=== PATIENT | female | born 1985 | race American Indian/Alaskan Native ===

== ENCOUNTER 2018-11-29 12:07 | Inpatient (IN) | payer MEDICAID, OTHER ==
--- NOTE | 2018-11-29 13:35 | History and Physical Report ---
History of Present Illness Date of admission: 11/29/18 12:07 Chief complaint: transferred from clinic due to 15 week missed History of present illness: 33yo at 16wks 1 day presents from clinic due to no heart tones confirmed on US. She denies vaginal bleeding or any trauma. She states she was seen at [facility] and received no feedback concerning status. She also stated she had a visit in September at [facility] that confirmed heart tones. Those records are not available at this time. She is a new patient of [facility]. Per MD verbal report the genetic screening tests was elevated for Trisomy 21. Past History Past Medical History: other (recent miscarriage 07/2018) Past Surgical History: no surgical history Family/Genetic History: cancer (Father - GI cancer) Social history: other (has a boyfriend, moved to [place] 2014, works for [employer], denies any tobacco, alcohol or drugs. ) - Obstetrical History : 7 Number of Living Children: 5 Medications and Allergies Allergies Allergy/AdvReac Type Severity Reaction Status Date / Time Latex, Natural Rubber Allergy Rash Verified 11/29/18 14:18 - Vital Signs Vital signs: Vital Signs Pulse BP 125 H 126/83 11/29/18 12:26 11/29/18 12:26 Temp Pulse Resp BP Pulse Ox 125 H 126/83 11/29/18 12:26 11/29/18 12:26 Results Result Diagrams: 11/29/18 13:49 All other labs normal. Assessment and Plan - Patient Problems (1) Second trimester Current Visit: Yes Status: Acute Plan to address problem: 1. Labs: (CBC, T&S, TSH, TORCH labs - not already drawn, HbA1C. 2. US to confirm no heart tones and presentation. 3. Positive quad screen: risk of DS discussed with patient. 4. Misoprostol 25mcg vaginally 5. IV pain control. 6. Discussed recommendation for induction and vaginal delivery with patient. Also discussed possible need for D&C if placenta does not deliver after vaginal delivery. Patient acknowledges understanding and questions were answered. 7. Proceed to induction of labor.
[2018-11-29] MEDS ORDERED: ZOFRAN IV PRN (13:38)
[2018-11-29] MEDS ORDERED: XYLOCAINE 2% INFILTRATI ONE (13:38)
[2018-11-29] MEDS ORDERED: BRETHINE SUB-Q PRN (13:38)
[2018-11-29] MEDS ORDERED: PITOCin/NS 20 UNIT/1000ML DRIP 20 UNITS/1,000 ML BAG IV SCH (14:00)
[2018-11-29 14:31] LABS: Hematocrit 35.1 % (30.3-42.9); Hemoglobin 11.4 gm/dl (10.1-14.3); Mean Corpuscular HGB Conc 32 % (30-34); Mean Corpuscular Volume 84 fl (79-97); Platelet Count 276 K/mm3 (140-440); Red Blood Count 4.18 M/mm3 (3.65-5.03); Red Cell Distribution Width 13.5 % (13.2-15.2)
--- NOTE | 2018-11-29 15:22 | Ultrasound Report ---
OB ULTRASOUND History: demise, confirm no heart tones, anatomic abnormalities. Technique: Transabdominal ultrasound with Doppler interrogation. Comparison: None at this facility. FINDINGS: Gestation: Single Position: Breech Amniotic Fluid: Within normal limits Placenta: Posterior Placental Grade: 0 Heart Rate: 0 BPM x It is too early for a anatomical survey BPD: 2.8 cm = 15 w 0 d HC: 10.5 cm = 15 w 0 d AC: 9.4 cm = 15 w 4 d FL: 1.4 cm = 14 w 1 d HC/AC Ratio: 1.1 Cephalic Index: 91.2 Estimated Weight: 109 grams Clinical age = 16 w 3 d EDC: 05/13/19 US Gest. Age = 15 w 0 d EDC: 05/03/19 IMPRESSION: demise.
[2018-11-29] MEDS: CYTOTEC VAGINAL SCH ×3 (15:34→23:40)
[2018-11-29] MEDS: SUBLIMAZE IV PRN (20:22)
[2018-11-29] MEDS ORDERED: PHENERGAN PO PRN (23:20)
[2018-11-30] MEDS: SUBLIMAZE IV PRN (00:22)
[2018-11-30] MEDS ORDERED: MORPHINE ONE (00:44)
[2018-11-30] MEDS ORDERED: MORPHINE IV ONE (00:53)
[2018-11-30] MEDS ORDERED: CYTOTEC PO ONE (00:54)
[2018-11-30] MEDS ORDERED: CYTOTEC ONE (00:55)
[2018-11-30] MEDS ORDERED: LACTATED RINGERS 2,000 ML ONE (01:16)
[2018-11-30] MEDS ORDERED: DOXYCYCLINE HYCLATE 200 MG in NACL 0.9% 250ML 250 ML IV ONE (01:30)
[2018-11-30] MEDS ORDERED: TUCKS PAD TP PRN (01:48)
[2018-11-30] MEDS ORDERED: PHENERGAN PO PRN (01:48)
[2018-11-30] MEDS ORDERED: TYLENOL PO PRN (01:48)
[2018-11-30] MEDS ORDERED: DULCOLAX PR PRN (01:48)
[2018-11-30] MEDS ORDERED: MILK OF MAGNESIA PO PRN (01:48)
[2018-11-30] MEDS ORDERED: LANSINOH TP PRN (01:48)
[2018-11-30] MEDS ORDERED: BENADRYL PO PRN (01:48)
--- NOTE | 2018-11-30 01:48 | Procedure Note ---
OB Delivery Note - Delivery Estimated blood loss: other (400ml) - Vaginal Intrapartum events: other(please specify) (spontaneous at 15 weeks) Delivery augmentation: rupture of membranes Delivery monitor: none Route of delivery: Delivery placenta: spontaneous Episiotomy: none Delivery laceration: none Anesthesia: intravenous Delivery comments: Called to room of patient found to have bulging membranes with 100ml vaginal bleeding in bed. Ruptured membranes and fetus spontaneously delivered in vertex position. Attempted collection of amniotic fluid prior to rupture for analysis but patient refused. Cord clamped x 2, cut and placed in sterile basin. Attention then turned to placenta with thin cord. Decision made to administer uterotonic to aid in placenta delivery. Patient given Misoprostol 200mcg buccally. Called to room for vaginal bleeding 300ml blood and clots in bed, decision made to proceed to suction D&C. Patient consented. Called to room of patient placenta had delivered spontaneously with maternal pushing with charge nurse. Bimanual exam done, uterus firm and bleeding stopped. Decision made to do sonogram to evaluate for retaine products and continue mother on Methergine 200mg PO Q3 hrs x 3 doses. Times Delivery 0049 Placenta 0125
[2018-11-30] MEDS ORDERED: SODIUM CHLORIDE FLUSH SYRINGE 10 ML IV PRN (02:00)
[2018-11-30] MEDS: IBUPROFEN PO SCH ×4 (02:17→22:51)
[2018-11-30] MEDS: METHERGINE PO SCH ×2 (06:38→08:24)
[2018-11-30] MEDS: NORCO 5/325 PO PRN ×3 (06:47→23:05)
[2018-11-30] MEDS ORDERED: METHERGINE PO SCH (12:00)
[2018-11-30 16:28] LABS: Hematocrit 34.2 % (30.3-42.9); Hemoglobin 11.1 gm/dl (10.1-14.3)
[2018-11-30] MEDS ORDERED: FLONASE NS PRN (18:43)
[2018-12-01] MEDS: IBUPROFEN PO SCH ×2 (03:18→12:00)
--- NOTE | 2018-12-01 07:08 | Ultrasound Report ---
Transvaginal sonography: History: Spontaneous . Findings: Uterus measures 13.8 x 7.1 x 7.9 cm. Endometrial thickness 22.3 mm. No intrauterine gestation. No intact and parts. Right ovary 3.3 x 1.6 x 2.9 cm. Cyst in the right ovary measures 1.1 cm. Left ovary 3.4 x 2.2 x 1.1 cm. Cyst in the left ovary measures 1.4 cm. He Impression: No intrauterine gestation. Thick endometrium. Bilateral ovarian cysts.
[2018-12-01 14:34] VITALS: BP 127/81
--- NOTE | 2018-12-01 16:52 | Progress Note ---
Assessment and Plan - Patient Problems (1) (normal spontaneous vaginal delivery) Current Visit: Yes Status: Acute (2) demise Current Visit: Yes Status: Acute (3) Sore throat Current Visit: Yes Status: Acute Plan to address problem: Will discharge her home on augmentin for 7 days. She was told to follow up in 2 weeks in the office. Subjective - Subjective Date of service: 12/01/18 Principal diagnosis: S/P of demised fetau at 15 weeks. Interval history: Patient is S/P yesterday AM of demised fetus at 15 weeks. Quad screen was positive for Trisomy 21. Patient complains of sore throat and nasal congestion. She denies any bleeding or pain. Objective - Vital Signs Latest vital signs: Vital Signs Temp Pulse Resp BP BP Pulse Ox 12/01/18 12:36 98.3 F 113 H 20 127/81 98 12/01/18 07:58 98.0 F 94 H 20 107/62 95 12/01/18 04:39 98.0 F 113 H 18 103/69 94 12/01/18 00:23 98.4 F 97 H 20 98/61 96 11/30/18 19:50 97.6 F 90 18 112/73 97 11/30/18 18:07 98.2 F 84 18 98/56 95 - Exam Cardiovascular: Present: Normal S1, Normal S2 Lungs: Present: Clear to auscultation Vulva: both: normal Deep Tendon Reflex Grade: Normal +2
--- NOTE | 2018-12-01 16:53 | Discharge Summary ---
Providers - Providers Date of Admission: 11/29/18 12:07 Date of discharge: 12/01/18 Attending physician: JOSEPH VARGAS Primary care physician: JOSEPH VARGAS Hospitalization Delivery: Hospital course: Patient is S/P yesterday AM of demised fetus at 15 weeks. Quad screen was positive for Trisomy 21. Patient complains of sore throat and nasal congestion. She denies any bleeding or pain. Condition at discharge: Stable Disposition: DC-01 TO HOME OR SELFCARE - Discharge Diagnoses (1) (normal spontaneous vaginal delivery) Status: Acute (2) demise Status: Acute (3) Sore throat Status: Acute Plan - Provider Discharge Summary Activity: routine Diet: routine Instructions: routine Additional instructions: [] Smoking cessation referral if applicable(refer to patient education folder for contact #) [] Refer to [facility] Booklet Call your doctor immediately for: * Fever > 100.5 * Heavy vaginal bleeding ( >1 pad per hour) * Severe persistent headache * Shortness of breath * Reddened, hot, painful area to leg or breast * Drainage or odor from incision. * Keep incision clean and dry at all times and follow doctor's instructions regarding bathing/showering - Follow up plan Follow up: JOSEPH VARGAS MD [Primary Care Provider] - 7 Days Forms: [facility] Discharge Summary
== END 2018-12-01 18:15 | disposition home or self-care (01) | DRG 779 ==
LOC: LD 12:07 → OB 11-30 05:04
PROVIDERS: ADMIT Obstetrics & Gynecology; ATTEND Obstetrics & Gynecology
PROC: 10E0XZZ Delivery of Products of Conception, External Approach (ICD-10-PCS; principal; 2018-11-29)
DX: O02.1 Missed abortion (principal); J02.9 Acute pharyngitis, unspecified; O99.52 Diseases of the respiratory system complicating childbirth; Z80.0 Family history of malignant neoplasm of digestive organs; Z91.040 Latex allergy status; Z91.048 Other nonmedicinal substance allergy status; Q90.9 Down syndrome, unspecified
CPT/HCPCS: 36415; 76805; 76817; 85014; 85018; 85027; 86850; 86900; 86901; 88305; G0378; J2270; J2590; J3010; J7050; J7120; Q0169

== ENCOUNTER 2018-12-22 23:15 | Emergency (ER) | payer OTHER ==
[2018-12-22 23:46] LABS: Basophils # (Auto) 0.1 K/mm3 (0.0-0.1); Basophils % (Auto) 1.5 % (0.0-1.8); Eosinophils # (Auto) 0.2 K/mm3 (0.0-0.4); Eosinophils % (Auto) 2.2 % (0.0-4.3); Hematocrit 33.9 % (30.3-42.9); Hemoglobin 11.7 gm/dl (10.1-14.3); Lymphocytes # (Auto) 2.9 K/mm3 (1.2-5.4); Lymphocytes % (Auto) 29.1 % (13.4-35.0); Mean Corpuscular HGB Conc 35 % (30-34); Mean Corpuscular Volume 82 fl (79-97); Monocytes # (Auto) 0.8 K/mm3 (0.0-0.8); Monocytes % (Auto) 7.8 % (0.0-7.3); Platelet Count 367 K/mm3 (140-440); Red Blood Count 4.12 M/mm3 (3.65-5.03); Red Cell Distribution Width 14.2 % (13.2-15.2)
[2018-12-23 00:24] VITALS: BP 136/88
--- NOTE | 2018-12-23 00:26 | Emergency Department Report ---
ED Female HPI - General Chief complaint: Abdominal Pain Stated complaint: POST MISCARRIAGE COMPLICATIONS Time Seen by Provider: 12/23/18 00:20 Source: patient Mode of arrival: Ambulatory Limitations: No Limitations - History of Present Illness Initial comments: Patient is a 33-year-old female that presents emergency room with complaints of vaginal bleeding, passing of tissue and clots and abdominal cramping. Patient states her cramping is worsening. Patient states her passing of tissue and clots worsening. Patient states on November 30 of this year patient and intrauterine demise and delivered the baby upstairs. Patient states that she has been bleeding since but 3 days ago she started passing clots. Patient states she was seen in her GYNs office and they told her to come to the emergency room. Patient states her cramps are intermittent. Patient states her cramps are a 6 out of 10. Patient states they're better with rest and worse with movement. She denies fever chills. Patient denies vaginal discharge. Patient denies dysuria. Patient states her JOURNEYMAN GLAZIER is Dr. Nirmal SAEZ Complaint: vaginal bleeding, pelvic pain -: Sudden Radiation: suprapubic Severity: moderate Severity scale (0 -10): 6 Quality: cramping Consistency: intermittent Improves with: other Worsens with: movement Are you Now?: No Associated Symptoms: vaginal bleeding, abdominal pain. denies: vaginal discharge, nausea/vomiting, fever/chills, headaches, loss of appetite, dysuria, hematuria, rash, seizure, shortness of breath, syncope, weakness, other - Related Data Sexually active: No : 2 Para: 1 A: 1 Previous Rx's Medication Instructions Recorded Last Taken Type Amoxicillin/Potassium Clav 1 each PO BID 7 Days #14 tablet 12/01/18 Unknown Rx [Augmentin 875-125 Tablet] Allergies Allergy/AdvReac Type Severity Reaction Status Date / Time Latex, Natural Rubber Allergy Rash Verified 11/29/18 14:18 ED Review of Systems ROS: Stated complaint: POST MISCARRIAGE COMPLICATIONS Other details as noted in HPI Constitutional: denies: chills, fever Eyes: denies: eye pain, eye discharge, vision change ENT: denies: ear pain, throat pain Respiratory: denies: cough, shortness of breath, wheezing Cardiovascular: denies: chest pain, palpitations Endocrine: no symptoms reported Gastrointestinal: abdominal pain. denies: nausea, vomiting, diarrhea Genitourinary: abnormal menses. denies: urgency, dysuria, discharge Musculoskeletal: denies: back pain, joint swelling, arthralgia Skin: denies: rash, lesions Neurological: denies: headache, weakness, paresthesias Psychiatric: denies: anxiety, depression Hematological/Lymphatic: denies: easy bleeding, easy bruising ED Past Medical Hx - Past Medical History Previous Medical History?: Yes Hx Hypertension: No Hx Congestive Heart Failure: No Hx Diabetes: No Hx Deep Vein Thrombosis: No Hx Sickle Cell Disease: No Hx Seizures: No Hx Asthma: Yes Hx COPD: No Hx HIV: No - Surgical History Past Surgical History?: No - Social History Smoking Status: Never Smoker Substance Use Type: None - Medications Home Medications: Home Medications Medication Instructions Recorded Confirmed Last Taken Type Amoxicillin/Potassium Clav 1 each PO BID 7 Days #14 tablet 12/01/18 Unknown Rx [Augmentin 875-125 Tablet] ED Physical Exam - General Limitations: No Limitations General appearance: alert, in no apparent distress - Head Head exam: Present: atraumatic, normocephalic - Eye Eye exam: Present: normal appearance - ENT ENT exam: Present: mucous membranes moist - Neck Neck exam: Present: normal inspection - Respiratory Respiratory exam: Present: normal lung sounds bilaterally. Absent: respiratory distress - Cardiovascular Cardiovascular Exam: Present: regular rate, normal rhythm. Absent: systolic murmur, diastolic murmur, rubs, gallop - GI/Abdominal GI/Abdominal exam: Present: soft, tenderness (lower abdominal tenderness), normal bowel sounds - Extremities Exam Extremities exam: Present: normal inspection - Back Exam Back exam: Present: normal inspection - Neurological Exam Neurological exam: Present: alert, oriented X3 - Psychiatric Psychiatric exam: Present: normal affect, normal mood - Skin Skin exam: Present: warm, dry, intact, normal color. Absent: rash ED Course Vital Signs 12/23/18 12/23/18 12/23/18 00:21 00:22 01:57 Pulse Rate 87 Respiratory 18 Rate Blood Pressure 136/88 136/88 Blood Pressure 136/88 [Left] O2 Sat by Pulse 100 100 100 Oximetry 12/23/18 01:58 Pulse Rate 84 Respiratory 16 Rate Blood Pressure Blood Pressure 107/68 [Left] O2 Sat by Pulse 99 Oximetry - Reevaluation(s) Reevaluation #1: Discussed all results with patient. Patient will be transferred to another facility since we do not have ultrasound.. Patient agrees to plan of care. 12/23/18 01:09 - Consultations Consultation #1: discussed case with Dr. Kinney. Dr. Sierra wants patient transfer since we do not have ultrasound this time. 12/23/18 00:52 Consultation #2: Discussed case with a [facility] Main ER. Dr. Gutiérrez has accepted the patient to be transferred from ER to ER. 12/23/18 01:27 ED Medical Decision Making - Lab Data Result diagrams: 12/22/18 23:29 12/23/18 01:06 - Medical Decision Making Patient is a 33-year-old female that presents to emergency room with lower abdominal cramping and vaginal bleeding and passing of clots and tissue. At this time the hospital does not have ultrasound due to a system tear. Patient will be transferred to another hospital in order to have an ultrasound. I discussed this case with the patient's PRODUCT MARKETING CONSULTANT and Dr. Cooper agrees with transfer. Patient has been accepted to [facility] Main ER. Labs are unremarkable. Vital signs stable. - Differential Diagnosis vaginal bleeding. Retained products. Passing of clots/tissue. cramps Critical Care Time: Yes Critical care attestation.: If time is entered above; I have spent that time in minutes in the direct care of this critically ill patient, excluding procedure time. Critical Care Time: 45 minutes ED Disposition Clinical Impression: Vaginal bleeding, demise, Abdominal cramping Abdominal pain Qualifiers: Abdominal location: lower abdomen, unspecified Qualified Code(s): R10.30 - Lower abdominal pain, unspecified Disposition: DC/TX-70 ANOTHER TYPE HLTHCARE Is pt being admited?: No Does the pt Need Aspirin: No Condition: Critical Referrals: STEPHEN HUFFMAN MD [Referring] - 3-5 Days Time of Disposition: :29
[2018-12-23 00:43] LABS: Bilirubin,Urine NEG (Negative); Blood,Urine SM (Negative); Color,Urine Yellow (Yellow); Mucus,Urine 2+ /HPF; Protein,Urine <15 mg/dL mg/dL (Negative)
[2018-12-23 01:40] LABS: BUN/Creatinine Ratio 17; Blood Urea Nitrogen 10 mg/dL (7-17); Calcium 9.5 mg/dL (8.4-10.2); Hemolysis Index 6
== END 2018-12-23 02:17 | disposition other institution (70) ==
LOC: ED 23:15
DX: N93.9 Abnormal uterine and vaginal bleeding, unspecified (principal); J45.909 Unspecified asthma, uncomplicated
CPT/HCPCS: 36415; 80048; 81001; 84702; 84703; 85025; 86900; 86901

== ENCOUNTER 2021-02-01 19:49 | Outpatient (CLI) | payer MEDICAID ==
[2021-02-01 20:25] VITALS: BP 106/62
[2021-02-01] MEDS ORDERED: ACETAMINOPHEN 500 MG TAB PO ONE (21:34)
== END 2021-02-01 22:35 | disposition home or self-care (01) ==
LOC: APU 19:49 → TRG 19:49
PROVIDERS: ATTEND Obstetrics & Gynecology
DX: O09.893 Supervision of other high risk pregnancies, third trimester (principal); Z3A.37 37 weeks gestation of pregnancy
CPT/HCPCS: 59025

== ENCOUNTER 2021-02-09 13:05 | Inpatient (IN) | payer MEDICAID ==
[2021-02-09] MEDS ORDERED: TERBUTALINE 1 MG/1 ML INJ SUB-Q PRN (13:46)
[2021-02-09] MEDS ORDERED: LOPERAMIDE 2 MG CAP PO PRN (13:46)
[2021-02-09] MEDS ORDERED: miSOPROStol 200 MCG TAB PR PRN (13:46)
[2021-02-09] MEDS ORDERED: ePHEDrine SULFATE 50 MG/1 ML INJ IV PRN (13:46)
[2021-02-09] MEDS ORDERED: CARBOPROST TROMETHAMINE 250 MCG/1 ML INJ IM PRN (13:46)
[2021-02-09] MEDS ORDERED: OXYTOCIN 10 UNIT/1 ML INJ IM PRN (13:46)
[2021-02-09] MEDS ORDERED: fentaNYL 100 MCG/2 ML INJ IV PRN (13:46)
[2021-02-09] MEDS ORDERED: MINERAL OIL 30 ML ORAL LIQD PO PRN (13:46)
[2021-02-09] MEDS ORDERED: METHYLERGONOVINE MALEATE 0.2 MG/ML VIAL IM PRN (13:46)
[2021-02-09] MEDS ORDERED: OXYTOCIN DRIP 30 UNITS/500 ML BAG IV SCH (14:00)
[2021-02-09] MEDS ORDERED: LACTATED RINGERS 1,000 ML IV SCH (14:00)
[2021-02-09] MEDS ORDERED: AMPICILLIN/NS 2 GM/100 ML 2 GM/100 ML BAG IV ONE (14:00)
--- NOTE | 2021-02-09 14:00 | History and Physical Report ---
History of Present Illness Date of examination: 02/09/21 Date of admission: 02/09/21 Chief complaint: Contractions History of present illness: 35 year old female presents with complaint of painful contractions for several hours. Denies LOF or VB. Patient states she received care at [facility] OB-CERTIFIED MAINTENANCE WELDER. LMP 05/14/2020. EDC 02/18/2021. significant for the following: anemia, cystic fibrosis carrier, SMA carrier, enlarged cisterna magna at 35 weeks (normal on repeat 01/09), HSIL pap (patient declined colpo during ), polyhydramnios, previous trisomy 21 IUFD (NIPS low risk during this ), suspected absent Cavum septa pellucidum per [facility] (peds notified). labs are as follows: O+, antibody screen negative, rubella immune, pap HSIL/+ HPV, RPR nonreactive, HIV negative, hepatitis B surface antigen negative, HSV 2 negative, hemoglobin electrophoresis AA, gonorrhea negative, chlamydia negative, cystic fibrosis 1 variant positive, SMA positive carrier, NIPS low risk, negative OSB, 1 hour sugar test 107, GBS negative. Past History Past Medical History: other (HPV positive/HSIL pap smear; previous IUFD with trisomy 21 fetus) Past Surgical History: no surgical history CERTIFIED MAINTENANCE WELDER History: abnormal PAP smear. denies: chlamydia, gonorrhea, hepatitis B, hepatitis C, herpes, HIV, syphilis, trichomonas Family/Genetic History: other (previous IUFD with trisomy 21) Social history: no significant social history, full code. denies: smoking, alcohol abuse, prescription drug abuse, IV drug use - Obstetrical History Expected Date of Delivery: 02/18/21 Actual Gestation: 38 Week(s) 5 Day(s) : 8 Para: 5 Hx # Term Pregnancies: 5 Number of Pregnancies: 1 Spontaneous Abortions: 1 Induced : 0 Number of Living Children: 5 Medications and Allergies Allergies Allergy/AdvReac Type Severity Reaction Status Date / Time Latex, Natural Rubber Allergy Rash Verified 11/29/18 14:18 Home Medications Medication Instructions Recorded Confirmed Last Taken Type Amoxicillin/Potassium Clav 1 each PO BID 7 Days #14 tablet 12/01/18 Unknown Rx [Augmentin 875-125 Tablet] Active Meds: Active Medications Carboprost Tromethamine (Carboprost Tromethamine 250 Mcg/1 Ml Inj) 250 mcg IM ONCE PRN PRN Reason: Uterine Bleeding Ephedrine Sulfate (Ephedrine Sulfate 50 Mg/1 Ml Inj) 10 mg IV Q2M PRN PRN Reason: Hypotension Fentanyl (Fentanyl 100 Mcg/2 Ml Inj) 100 mcg IV Q2H PRN PRN Reason: Pain,Severe (7-10) LABOR PAIN Lactated Ringer's (Lactated Ringers) 1,000 mls @ 125 mls/hr IV DIRECT ZAIDA Oxytocin/Sodium Chloride (Pitocin/Ns 30 Unit/500ml) 30 units in 500 mls @ 40 mls/hr IV TITR ZAIDA; Protocol Ampicillin Sodium (Ampicillin/Ns 2 Gm/100 Ml) 2 gm in 100 mls @ 100 mls/hr IV ONCE ONE; Protocol Stop: 02/09/21 14:59 Ampicillin Sodium (Ampicillin/Ns 1 Gm/50 Ml) 1 gm in 50 mls @ 100 mls/hr IV Q4H ZAIDA; Protocol Lidocaine (Lidocaine (2%) 20 Mg/1 Ml Vial 20 Ml Mdv) 20 ml INFILTRATI ONCE ONE Stop: 02/09/21 13:47 Loperamide HCl (Loperamide 2 Mg Cap) 2 mg PO ONCE PRN PRN Reason: give with Hemabate Methylergonovine Maleate (Methylergonovine Maleate 0.2 Mg/Ml Vial) 0.2 mg IM ONCE PRN PRN Reason: Uterine Bleeding Mineral Oil (Mineral Oil 30 Ml Oral Liqd) 30 ml PO QHS PRN PRN Reason: Constipation Misoprostol (Misoprostol 200 Mcg Tab) 800 mcg CO ONCE PRN PRN Reason: Uterine Bleeding Oxytocin (Oxytocin 10 Unit/1 Ml Inj) 10 unit IM ONCE PRN PRN Reason: Uterine Bleeding Terbutaline Sulfate (Terbutaline 1 Mg/1 Ml Inj) 0.25 mg SUB-Q ONCE PRN PRN Reason: Hyperstimulation/Hypertonicity Review of Systems All systems: negative (contractions) - Vital Signs Vital signs: Vital Signs Pulse Pulse Ox 118 H 97 02/09/21 13:33 02/09/21 13:33 Temp Pulse Resp BP Pulse Ox 97.8 F 98 H 18 99 02/09/21 13:40 02/09/21 13:58 02/09/21 13:40 02/09/21 13:58 - Physical Exam Abdomen: Positive: normal appearance, soft. Negative: distention, tenderness, guarding, rigidity Genitourinary (Female): Positive: normal external genitalia, normal perenium. Negative: perineal/vulvar lesions Vagina: Positive: normal moisture Uterus: Positive: enlarged. Negative: tender Anus/Rectum: Positive: normal perianal skin Extremities: Positive: normal. Negative: edema - Obstetrical FHR: category 1 Uterine Contraction Monitor Mode: External Cervical Dilatation: 5.5 Cervical Effacement Percentage: 95 station: -1 Uterine Contraction Pattern: Regular Uterine Contraction Intensity: Moderate Results All other labs normal. Assessment and Plan A: at 38 weeks, 5 days gestation. Active labor. GBS negative. AMA. Polyhydramnios. Suspected absent Cavum septa pellucidum. Enlarged cisterna magna at 35 weeks. Cystic fibrosis carrier and SMA carrier. Grand multipara. P: Admit. Continuous EFM. NICU notified of suspected absent Cavum septa pellucidum on US.
--- NOTE | 2021-02-09 14:53 | Anesthesia Consultation ---
Anesthesia Consult and Med Hx Date of service: 02/09/21 - Airway Anesthetic Teeth Evaluation: Good ROM Head & Neck: Adequate Mental/Hyoid Distance: Adequate Mallampati Class: Class II Intubation Access Assessment: Probably Good - Pulmonary Exam CTA: Yes - Cardiac Exam Cardiac Exam: RRR - Pre-Operative Health Status ASA Pre-Surgery Classification: ASA2 Proposed Anesthetic Plan: Epidural - Pulmonary Hx Asthma: Yes COPD: No Hx Pneumonia: No - Cardiovascular System Hx Hypertension: No - Central Nervous System Hx Seizures: No Hx Psychiatric Problems: No - Endocrine Hx End Stage Renal Disease: No Hx Hypothyroidism: No Hx Hyperthyroidism: No - Hematic Hx Anemia: No Hx Sickle Cell Disease: No - Other Systems Hx Alcohol Use: No
[2021-02-09] MEDS ORDERED: LIDOCAINE (2%) 20 MG/1 ML VIAL 20 ML MDV INFILTRATI ONE (15:00)
[2021-02-09 15:18] LABS: Hepatitis C Virus Antibody Non-Reactive (NonReactive)
--- NOTE | 2021-02-09 15:40 | Procedure Note ---
OB Delivery Note - Delivery Date of Delivery: 02/09/21 Surgeon: AALIYAH NELSON Estimated blood loss: other (150 cc) - Vaginal Delivery presentation: vertex Delivery position: OA Intrapartum events: hydramnios Delivery induction: none Delivery monitor: external FHT, external uterine Route of delivery: Delivery placenta: spontaneous Delivery cord: 3 umbilical vessels Episiotomy: none Delivery laceration: none Anesthesia: none Delivery comments: Spontaneous vaginal delivery at 15:12 of liveborn male weighing 8 lbs. 5 oz. over intact perineum with apgars of 9/9. SROM at time of delivery, large amount of clear fluid. Nuchal cord times 2, manually reduced. was atraumatic. Baby placed skin to skin with mom immediately after delivery and was dried with towels and suctioned with bulb syringe. Spontaneous cry and respirations. 3 vessel cord double clamped and cut. Cord blood obtained. Spontaneous delivery of intact placenta and membranes by babcock mechanism. EBL 150 cc. Pitocin to IV fluids after delivery of placenta. Fundus firm and midline. No lacerations noted. Vaginal sweep negative. Sponge count correct. Mother and baby stable. NICU was present for delivery.
[2021-02-09] MEDS ORDERED: WITCH HAZEL/ GLYCERIN PAD TP PRN (16:00)
[2021-02-09] MEDS ORDERED: MAGNESIUM HYDROXIDE (MOM) ORAL LIQD UDC PO PRN (16:00)
[2021-02-09] MEDS: IBUPROFEN 600 MG TAB PO SCH ×2 (16:17→21:35)
[2021-02-09] MEDS ORDERED: LANOLIN/ZINC/DIMETHICONE (LANSINOH) 7 GM TP PRN (16:30)
[2021-02-09] MEDS: HYDROcodone/ACETAMINOPHEN 5-325 MG TAB PO PRN ×2 (17:54→23:34)
[2021-02-09] MEDS: DOCUSATE SODIUM 100 MG CAP PO SCH ×2 (17:55→21:37)
[2021-02-09] MEDS ORDERED: AMPICILLIN/NS 1 GM/50 ML 1 GM/50 ML BAG IV SCH (18:00)
[2021-02-09 18:41] LABS: Hematocrit 38.3 % (30.3-42.9); Hemoglobin 12.2 gm/dl (10.1-14.3); Mean Corpuscular HGB Conc 32 % (30-34); Mean Corpuscular Volume 86 fl (79-97); Platelet Count 252 K/mm3 (140-440); Red Blood Count 4.48 M/mm3 (3.65-5.03); Red Cell Distribution Width 15.8 % (13.2-15.2)
[2021-02-10 04:28] LABS: Hematocrit 36.3 % (30.3-42.9)
[2021-02-10] MEDS: IBUPROFEN 600 MG TAB PO SCH ×3 (05:42→18:32)
[2021-02-10] MEDS ORDERED: diphenhydrAMINE 25 MG CAP PO PRN (07:30)
[2021-02-10] MEDS: HYDROcodone/ACETAMINOPHEN 5-325 MG TAB PO PRN ×2 (08:00→21:47)
--- NOTE | 2021-02-10 08:41 | Progress Note ---
Assessment and Plan pt doing well. d/c in am. Subjective - Subjective Date of service: 02/10/21 Principal diagnosis: term , labor Interval history: s/p . Patient reports: appetite normal, voiding normally, pain well controlled, ambulating normally : doing well Objective - Vital Signs Latest vital signs: Vital Signs Temp Pulse Resp BP BP Pulse Ox 02/10/21 07:50 97.7 F 93 H 20 104/67 94 02/10/21 00:57 98.0 F 73 18 108/67 96 02/09/21 20:53 97.5 F L 67 18 113/62 97 02/09/21 17:20 98.3 F 71 127/83 02/09/21 16:47 89 127/91 02/09/21 16:45 98.5 F 18 02/09/21 16:43 90 98 02/09/21 16:38 76 100 02/09/21 16:33 80 100 02/09/21 16:32 88 115/61 02/09/21 16:28 85 99 02/09/21 16:23 79 99 02/09/21 16:18 100 H 100 02/09/21 16:16 103 H 130/82 02/09/21 16:13 108 H 99 02/09/21 16:08 85 100 02/09/21 16:03 96 H 99 02/09/21 16:02 84 131/84 02/09/21 15:58 90 100 02/09/21 15:53 95 H 98 02/09/21 15:48 96 H 99 02/09/21 15:47 91 H 119/62 02/09/21 15:43 95 H 100 02/09/21 15:38 92 H 99 02/09/21 15:33 100 H 99 02/09/21 15:32 83 127/71 02/09/21 15:28 101 H 97 02/09/21 15:23 112 H 98 02/09/21 15:18 119 H 99 02/09/21 15:13 128 H 99 02/09/21 15:08 88 100 02/09/21 15:05 66 87 02/09/21 15:03 115 H 100 02/09/21 15:02 96 H 18 131/76 100 02/09/21 15:00 99 H 131/76 02/09/21 14:58 62 92 07/11/21 14:03 87 100 02/09/21 13:58 98 H 99 02/09/21 13:53 87 99 02/09/21 13:48 84 99 02/09/21 13:43 93 H 99 02/09/21 13:40 97.8 F 18 02/09/21 13:38 116 H 99 02/09/21 13:33 118 H 97 Intake and Output 02/09/21 02/10/21 02/10/21 23:59 07:59 15:59 Intake Total 240 360 Output Total 500 800 Balance -260 -440 Intake: Intake, Free Water 240 360 Output: Urine 500 800 Void 500 800 Other: Total, Output Amount 200 800 # Voids Void 1 - Exam Abdomen: Present: normal appearance, soft Extremities: Present: normal Incision: Present: normal, dry, intact - Labs Labs: Abnormal lab results 02/09/21 Range/Units 14:04 MCH 27 L (28-32) pg RDW 15.8 H (13.2-15.2) %
[2021-02-10] MEDS: DOCUSATE SODIUM 100 MG CAP PO SCH ×3 (10:29→23:52)
[2021-02-11] MEDS: IBUPROFEN 600 MG TAB PO SCH ×3 (00:16→10:07)
--- NOTE | 2021-02-11 09:04 | Discharge Summary ---
Providers - Providers Date of Admission: 02/09/21 15:30 Date of discharge: 02/11/21 Attending physician: KIAN PINTO Primary care physician: GANG BORE OPERATOR Hospitalization Reason for admission: active labor, IUP at term Delivery: Episiotomy: none Laceration: none Other procedures: none complications: none Discharge diagnosis: IUP at term delivered [place] baby: male Hospital course: Pt was admitted to [facility] in active labor. She had a w/o pp complications. See H&P, delivery summary, and pp notes. Condition at discharge: Stable Disposition: DC-01 TO HOME OR SELFCARE Plan - Discharge Medications Prescriptions: Ibuprofen [Motrin 600 MG tab] 600 mg PO Q6H #30 tablet - Provider Discharge Summary Activity: routine, no sex for 6 weeks, no heavy lifting 4 weeks, no strenuous exercise Diet: routine Instructions: routine Additional instructions: [] Smoking cessation referral if applicable(refer to patient education folder for contact #) [] Refer to [facility] Booklet Call your doctor immediately for: * Fever > 100.5 * Heavy vaginal bleeding ( >1 pad per hour) * Severe persistent headache * Shortness of breath * Reddened, hot, painful area to leg or breast * Drainage or odor from incision. * Keep incision clean and dry at all times and follow doctor's instructions regarding bathing/showering - Follow up plan Follow up: PRIMARY CAREMD [Primary Care Provider] - 6 Weeks
[2021-02-11] MEDS: DOCUSATE SODIUM 100 MG CAP PO SCH (10:07)
[2021-02-11 16:48] VITALS: BP 105/72
== END 2021-02-11 18:10 | disposition home or self-care (01) | DRG 774 ==
LOC: TRG 13:05 → APU 13:06 → LD 14:54 → TRG 15:42 → OB 17:08
PROVIDERS: ADMIT Obstetrics & Gynecology; ATTEND Obstetrics & Gynecology
PROC: 10E0XZZ Delivery of Products of Conception, External Approach (ICD-10-PCS; principal; 2021-02-09)
DX: O99.02 Anemia complicating childbirth (principal); O98.32 Other infections with a predominantly sexual mode of transmission complicating childbirth; D64.9 Anemia, unspecified; Z20.822 Contact with and (suspected) exposure to COVID-19; O40.3XX0 Polyhydramnios, third trimester, not applicable or unspecified; O99.52 Diseases of the respiratory system complicating childbirth; O69.81X0 Labor and delivery complicated by cord around neck, without compression, not applicable or unspecified; J45.909 Unspecified asthma, uncomplicated; Z3A.38 38 weeks gestation of pregnancy; Z37.0 Single live birth; Z91.040 Latex allergy status; Z86.16 Personal history of COVID-19; A60.00 Herpesviral infection of urogenital system, unspecified
CPT/HCPCS: 36415; 59025; 85014; 85018; 85027; 86592; 86706; 86762; 86803; 86850; 86900; 86901; 87806; 99211; G0378; A6250; G0463; J2210; J2590; J3010; U0003

== ENCOUNTER 2021-07-14 09:21 | Observation (INO) | payer OTHER, MEDICAID ==
[2021-07-14] MEDS ORDERED: HYDROmorphone 1 MG/1 ML INJ IV PRN ×2 (10:12)
--- NOTE | 2021-07-14 10:13 | Anesthesia Day of Surgery ---
Anesthesia Day of Surgery - Day of Surgery Patient Examined: Yes Patient H&P Reviewed: Yes Patient is NPO: Yes
--- NOTE | 2021-07-14 10:15 | Anesthesia Consultation ---
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 very much-pain - Pre-Operative Health Status ASA Pre-Surgery Classification: ASA2 Proposed Anesthetic Plan: General - Pulmonary Hx Smoking: No Hx Asthma: Yes (SEASONAL & ALLERGYS) COPD: No Hx Pneumonia: No Hx Sleep Apnea: No (SNORES) - Cardiovascular System Hx Hypertension: No Hx Heart Attack/AMI: No Hx Heart Murmur: Yes - Central Nervous System Hx Seizures: No Hx Back Pain: Yes (LOWER) Hx Psychiatric Problems: No - Gastrointestinal Hx Gastroesophageal Reflux Disease: Yes (When ) - Endocrine Hx End Stage Renal Disease: No Hx Liver Disease: No Hx Hypothyroidism: No Hx Hyperthyroidism: No - Hematic Hx Anemia: Yes Hx Sickle Cell Disease: No - Other Systems Hx Alcohol Use: No Hx Substance Use: No Hx Cancer: No
[2021-07-14] MEDS: LACTATED RINGERS 1,000 ML IV SCH ×2 (10:29→15:48)
[2021-07-14] MEDS ORDERED: ONDANSETRON 4 MG/2 ML INJ IV PRN (10:30)
[2021-07-14] MEDS ORDERED: FERRIC SUBSULFATE TOPICAL SOLN 8 ML TP ONE ×2 (10:58→12:45)
[2021-07-14] MEDS ORDERED: POTASSIUM IODIDE/IODINE (LUGOLS) 30 ML TP ONE ×2 (10:58→11:26)
[2021-07-14] MEDS ORDERED: MIDAZOLAM 2 MG/2 ML INJ IV NR (11:00)
[2021-07-14] MEDS ORDERED: SODIUM CHLORIDE 0.9% IRR 1,500 ML BOTTLE IR ONE ×2 (11:20→12:46)
[2021-07-14] MEDS ORDERED: ONDANSETRON 4 MG/2 ML INJ ONE (11:24)
[2021-07-14] MEDS ORDERED: fentaNYL 100 MCG/2 ML INJ ONE (11:24)
[2021-07-14] MEDS ORDERED: propofoL 200 MG/20 ML VIAL IV ONE ×2 (11:24→11:57)
[2021-07-14] MEDS ORDERED: LIDOCAINE MPF (2%) 20 MG/1 ML VIAL 5 ML ONE (11:24)
[2021-07-14] MEDS ORDERED: ePHEDrine SULFATE 50 MG/1 ML INJ ONE (11:48)
[2021-07-14] MEDS ORDERED: ALBUMIN HUMAN 5% (12.5 GM/250 ML) INJ IV ONE (12:00)
[2021-07-14] MEDS ORDERED: SILVER NITRATE APPLICATOR 1 EA TP ONE ×2 (12:11→13:06)
[2021-07-14] MEDS ORDERED: SODIUM CHLORIDE 0.9% 1000 ML 1,000 ML ONE ×2 (12:43→14:00)
[2021-07-14 12:58] LABS: Mean Corpuscular HGB Conc 31 % (30-34); Mean Corpuscular Volume 85 fl (79-97); Platelet Count 254 K/mm3 (140-440); Red Blood Count 3.43 M/mm3 (3.65-5.03); Red Cell Distribution Width 13.3 % (13.2-15.2)
[2021-07-14] MEDS ORDERED: diphenhydrAMINE 50 MG/ML VIAL ONE (14:01)
--- NOTE | 2021-07-14 14:05 | Procedure Note ---
Date of procedure: 07/14/21 Pre-op diagnosis: severe cervical dysplasia Post-op diagnosis: same (and intraop hemorrhage) Procedure: Loop Electrode Excision Procedure After the risks, benefits and alternatives of procedure were discussed and consents obtained then pt taken to the OR via stretcher. Pt was given general anesthesia, prepped draped and draped in sterile fashion. time out done. Vitals stable. I received emergency call and had to step out of the OR suite, then returned and pt remained stable in dorsal lithotomy position as when I left. Time out remained unchanged. Attention turned to bladder and 50cc clear urine drained. Bimanual exam done and normal uterus noted with no adnexal mass. Coated speculum then placed in the vaginal and lugol's applied. Small area within the cervix noted anterior to absorb lugol's and none posterior. Using a [id number] loop and current at 30/30 on cautery, the transformation zone with ecto and endocervix removed. Large amount of bleeding noted posterior not amenable to ball electrode set at 60. O-vicryl sutures figure of 8 placed to posterior 6 o'clock and bilaterally at 3 and 9 o'clock positions. Blood loss estimated to be 950cc by anesthesia. Ball electrode cautery used with good effect, then silver nitrate x2 sticks and then monsel's solution. Instruments, sponge and needle counts correct x2. Pt was given 1 unit of PRBC uncrossmatched by anesthesia for symptomatic anemia with low BP and tacchycardia and then extubated when stable and taken to recovery room. Pt to be observed overnight and possible transfusion of 2nd unit. CBC sent from OR and results not available during this dictation. INTAKE: 3000cc crystalloids, and 250cc of 5% albumin and 1unit PRBC OUTPUT: 50cc clear urine prior to procedure EBL: 950cc (800 in cannister and estimate for gauze and spillage on the floor) Findings: engorged cervix that lugol's solution absorbed only anteriorly. Normal anteverted uterus without adnexal mass bilaterally Implants: none Surgeon: KIAN PINTO Estimated blood loss: other (950cc per anesthesia) Pathology: list (ecto and endo cervix labelled at 12 O'clock) Specimen disposition: to lab Condition: stable (after pt transfused PRBC x1 unit and 2nd unit to be given in PACU) Disposition: floor (To be observed with extensive blood loss)
[2021-07-14] MEDS ORDERED: diphenhydrAMINE 50 MG/ML VIAL IV SCH (14:30)
[2021-07-14] MEDS ORDERED: IBUPROFEN 800 MG TAB PO PRN (15:23)
[2021-07-14] MEDS ORDERED: ACETAMINOPHEN 325 MG TAB PO PRN (15:23)
[2021-07-14] MEDS ORDERED: MORPHINE 4 MG/1 ML INJ IV PRN (15:23)
--- NOTE | 2021-07-14 16:44 | Post Anesthesia Evaluation ---
- Post Anesthesia Evaluation Patient Participated: Yes Airway Patent: Yes Stable Respiratory Function: Yes Nausea/Vomiting: No Temp > 96.8F: Yes Pain Manageable: Yes Adequeate Hydration: Yes Anesthesia Complications: No Block Receding Appropriately: Not Applicable Patient on Ventilator: No
[2021-07-14] MEDS: oxyCODONE /ACETAMINOPHEN 5-325MG TAB PO PRN (17:52)
[2021-07-14 18:21] LABS: Total Cells Counted 100
[2021-07-14 18:22] LABS: Platelet Estimate Consistent w Auto; RBC Morphology Normal
[2021-07-14 18:59] LABS: Basophils % (Auto) 0.1 % (0.0-1.8); Eosinophils % (Auto) 0.1 % (0.0-4.3); Hemoglobin 10.4 gm/dl (10.1-14.3); Lymphocytes # (Auto) 0.7 K/mm3 (1.2-5.4); Lymphocytes % (Auto) 10.3 % (13.4-35.0); Mean Corpuscular HGB Conc 31 % (30-34); Mean Corpuscular Volume 90 fl (79-97); Monocytes # (Auto) 0.1 K/mm3 (0.0-0.8); Monocytes % (Auto) 0.8 % (0.0-7.3); Platelet Count 253 K/mm3 (140-440); Red Blood Count 3.78 M/mm3 (3.65-5.03); Red Cell Distribution Width 14.1 % (13.2-15.2)
--- NOTE | 2021-07-14 21:47 | Progress Note ---
Subjective Date of service: 07/14/21 Principal diagnosis: Severe cervical dysplasia Interval history: CC: POD #0 S/P LEEP HPI: No dizziness. No VB. No subjective palpitations. O: AVSS CV- no peripheral edema LUNGS- normal respiratory effort ABD- soft. NT. EXT- no C/C/E LABS: Hgb= 10.4 A: 1.) POD #0 S/P LEEP, S/P 2u PRBC 2.) Severe cervical dysplasia P: 1.) Hemodynamically stable tonight. 2.) Re-evaluate in AM. Objective - Constitutional Vitals: Vital Signs - 12hr 07/14/21 07/14/21 07/14/21 10:00 12:58 13:05 Temperature 97.6 F 97.2 F L 97.7 F Pulse Rate 85 108 H 95 H Respiratory 17 17 14 Rate Blood Pressure 107/65 92/48 104/55 Blood Pressure [Left] O2 Sat by Pulse 97 100 100 Oximetry 07/14/21 07/14/21 07/14/21 13:10 13:25 13:40 Temperature Pulse Rate 95 H 101 H 96 H Respiratory 14 18 14 Rate Blood Pressure 109/67 110/63 127/84 Blood Pressure [Left] O2 Sat by Pulse 100 100 99 Oximetry 07/14/21 07/14/21 07/14/21 13:55 14:10 14:30 Temperature 98.0 F 97.9 F Pulse Rate 91 H 93 H 85 Respiratory 15 15 16 Rate Blood Pressure 119/70 121/80 98/64 Blood Pressure [Left] O2 Sat by Pulse 100 100 99 Oximetry 07/14/21 07/14/21 07/14/21 14:45 17:30 19:50 Temperature 98 F 98.2 F Pulse Rate 85 108 H Respiratory 18 18 Rate Blood Pressure Blood Pressure 95/59 [Left] O2 Sat by Pulse 98 98 Oximetry 07/14/21 20:30 Temperature 97.6 F Pulse Rate 90 Respiratory 18 Rate Blood Pressure Blood Pressure 105/69 [Left] O2 Sat by Pulse 99 Oximetry - Labs CBC & Chem 7: 07/14/21 18:27 Labs: Abnormal lab results 07/14/21 07/14/21 07/14/21 Range/Units 12:13 12:13 18:27 RBC 3.43 L (3.65-5.03) M/mm3 Hgb 9.0 L (10.1-14.3) gm/dl Hct 29.0 L (30.3-42.9) % MCH 26 L (28-32) pg Lymph % (Auto) 10.3 L (13.4-35.0) % Lymph # (Auto) 0.7 L (1.2-5.4) K/mm3 Seg Neutrophils % 88.7 H (40.0-70.0) % Seg Neuts % (Manual) 35.0 L (40.0-70.0) % Lymphocytes % (Manual) 49.0 H (13.4-35.0) % Eosinophils % (Manual) 7.0 H (0.0-4.3) % Basophils % (Manual) 2.0 H (0.0-1.8) % Seg Neutrophils # Man 1.6 L (1.8-7.7) K/mm3 Crossmatch See Detail Medications & Allergies - Medications Allergies/Adverse Reactions: Allergies Latex, Natural Rubber Allergy (Verified 11/29/18 14:18) Rash SOAPS-ANTIBACTERIAL OK-LIKE DIAL Adverse Reaction (Uncoded 06/25/21 14:42) Rash Home Medications: Home Medications Medication Instructions Recorded Confirmed Last Taken Type Naproxen [Naprosyn] 500 mg PO PRN 06/25/21 06/25/21 Unknown History Vit-Fe Fumar-FA [ 1 tab PO DAILY 06/25/21 06/25/21 Unknown History Vitamin] Active Medications: Generic Name Dose Route Start Last Admin Trade Name Freq PRN Reason Stop Dose Admin Acetaminophen 650 mg 07/14/21 15:23 Acetaminophen 325 Mg Tab PO Q4H PRN Pain MILD(1-3)/Fever >100.5/FAJARDO Hydromorphone HCl 0.25 mg 07/14/21 10:12 Hydromorphone 1 Mg/1 Ml Inj IV 07/14/21 23:00 Q10MIN PRN Pain, Moderate (4-6) Hydromorphone HCl 0.5 mg 07/14/21 10:12 Hydromorphone 1 Mg/1 Ml Inj IV 07/14/21 23:00 Q10MIN PRN Pain , Severe (7-10) Lactated Ringer's 1,000 mls @ 125 mls/hr 07/14/21 11:00 07/14/21 15:48 Lactated Ringers IV 125 mls/hr DIRECT ZAIDA Administration Cefazolin Sodium 2 gm/ Sodium 100 mls @ 200 mls/hr 07/14/21 21:30 Chloride IV 07/15/21 05:59 Q8H ZAIDA Protocol Ibuprofen 800 mg 07/14/21 15:23 Ibuprofen 800 Mg Tab PO Q8H PRN Pain, Moderate (4-6) Midazolam HCl 2 mg 07/14/21 11:00 07/14/21 10:29 Midazolam 2 Mg/2 Ml Inj IV 07/14/21 23:59 2 mg PREOP NR Administration Morphine Sulfate 4 mg 07/14/21 15:23 Morphine 4 Mg/1 Ml Inj IV Q4H PRN Pain , Severe (7-10) Ondansetron HCl 4 mg 07/14/21 10:30 Ondansetron 4 Mg/2 Ml Inj IV ONCE PRN Nausea And Vomiting Oxycodone/Acetaminophen 2 tab 07/14/21 15:23 07/14/21 17:52 Oxycodone /Acetaminophen 5-325mg Tab PO 2 tab Q4H PRN Administration Pain, Moderate (4-6)
[2021-07-15] MEDS: LACTATED RINGERS 1,000 ML IV SCH (02:00)
[2021-07-15] MEDS: oxyCODONE /ACETAMINOPHEN 5-325MG TAB PO PRN ×2 (02:06→14:40)
[2021-07-15] MEDS: BENZOCAINE/MENTHOL LOZENGE MM PRN ×2 (05:50→12:01)
[2021-07-15 08:58] LABS: Basophils % (Auto) 0.1 % (0.0-1.8); Hematocrit 30.5 % (30.3-42.9); Hemoglobin 9.4 gm/dl (10.1-14.3); Lymphocytes # (Auto) 2.3 K/mm3 (1.2-5.4); Lymphocytes % (Auto) 18.4 % (13.4-35.0); Mean Corpuscular HGB Conc 31 % (30-34); Mean Corpuscular Volume 85 fl (79-97); Monocytes # (Auto) 0.9 K/mm3 (0.0-0.8); Monocytes % (Auto) 7.5 % (0.0-7.3); Platelet Count 242 K/mm3 (140-440); Red Blood Count 3.59 M/mm3 (3.65-5.03); Red Cell Distribution Width 13.6 % (13.2-15.2)
--- NOTE | 2021-07-15 15:10 | Progress Note ---
Assessment and Plan POD#1, LEEP, for severe cervical dysplasia with intraop hemorrhage. Now with asymptomatic anemia after 2units PRBC in the OR/PACU 1. Discharge pt home and keep follow up appt on 07/22/21 and pt counseled no sex or tub baths 2. plan of care discussed. Await pathology report. Subjective Date of service: 07/15/21 Principal diagnosis: Severe cervical dysplasia, POD#1 Interval history: Pt has no complaints. Denies vag bleeding or palpitation or chest pain or shortness of breath. Pain controlled with meds. Pt is voiding without difficulty. pt tolerates regular diet. Objective - Constitutional Vitals: Vital Signs - 12hr 07/15/21 07/15/21 07/15/21 05:12 07:55 11:36 Temperature 98.1 F 97.6 F 98.2 F Pulse Rate 75 65 76 Respiratory 18 18 18 Rate Blood Pressure 92/45 95/50 107/60 O2 Sat by Pulse 93 96 99 Oximetry General appearance: Present: no acute distress - Respiratory Respiratory effort: normal - Breasts Breasts: deferred - Cardiovascular Rhythm: regular Extremities: No edema - Gastrointestinal General gastrointestinal: Present: soft, non-tender - Genitourinary Female genitourinary: other (peripad with no vag bleed) - Neurologic Neurologic: moves all extremities - Psychiatric Psychiatric: cooperative - Labs CBC & Chem 7: 07/15/21 08:31 Labs: Abnormal lab results 07/14/21 07/14/21 07/14/21 Range/Units 12:13 12:13 18:27 WBC (4.5-11.0) K/mm3 RBC (3.65-5.03) M/mm3 Hgb (10.1-14.3) gm/dl MCH (28-32) pg Lymph % (Auto) 10.3 L (13.4-35.0) % [place] % (Auto) (0.0-7.3) % Lymph # (Auto) 0.7 L (1.2-5.4) K/mm3 [place] # (Auto) (0.0-0.8) K/mm3 Seg Neutrophils % 88.7 H (40.0-70.0) % Seg Neuts % (Manual) 35.0 L (40.0-70.0) % Lymphocytes % (Manual) 49.0 H (13.4-35.0) % Eosinophils % (Manual) 7.0 H (0.0-4.3) % Basophils % (Manual) 2.0 H (0.0-1.8) % Seg Neutrophils # (1.8-7.7) K/mm3 Seg Neutrophils # Man 1.6 L (1.8-7.7) K/mm3 Crossmatch See Detail 07/15/21 Range/Units 08:31 WBC 12.5 H (4.5-11.0) K/mm3 RBC 3.59 L (3.65-5.03) M/mm3 Hgb 9.4 L (10.1-14.3) gm/dl MCH 26 L (28-32) pg Lymph % (Auto) (13.4-35.0) % [place] % (Auto) 7.5 H (0.0-7.3) % Lymph # (Auto) (1.2-5.4) K/mm3 [place] # (Auto) 0.9 H (0.0-0.8) K/mm3 Seg Neutrophils % 74.0 H (40.0-70.0) % Seg Neuts % (Manual) (40.0-70.0) % Lymphocytes % (Manual) (13.4-35.0) % Eosinophils % (Manual) (0.0-4.3) % Basophils % (Manual) (0.0-1.8) % Seg Neutrophils # 9.2 H (1.8-7.7) K/mm3 Seg Neutrophils # Man (1.8-7.7) K/mm3 Crossmatch Medications & Allergies - Medications Allergies/Adverse Reactions: Allergies Latex, Natural Rubber Allergy (Verified 11/29/18 14:18) Rash SOAPS-ANTIBACTERIAL OK-LIKE DIAL Adverse Reaction (Uncoded 06/25/21 14:42) Rash Home Medications: Home Medications Medication Instructions Recorded Confirmed Last Taken Type Naproxen [Naprosyn] 500 mg PO PRN 06/25/21 06/25/21 Unknown History Vit-Fe Fumar-FA [ 1 tab PO DAILY 06/25/21 06/25/21 Unknown History Vitamin] Ferrous Sulfate [Ferrous Sulfate 324 mg PO BID 30 Days #60 tablet.dr 07/15/21 Unknown Rx 324 MG] Ibuprofen [Motrin] 800 mg PO Q8HR PRN 21 Days #40 07/15/21 Unknown Rx tablet oxyCODONE /ACETAMINOPHEN [Percocet 1 tab PO Q4HR PRN 21 Days #30 tab 07/15/21 Unknown Rx 5/325] Active Medications: Generic Name Dose Route Start Last Admin Trade Name Freq PRN Reason Stop Dose Admin Acetaminophen 650 mg 07/14/21 15:23 Acetaminophen 325 Mg Tab PO Q4H PRN Pain MILD(1-3)/Fever >100.5/FAJARDO Benzocaine/Menthol 1 each 07/15/21 02:15 07/15/21 12:01 Benzocaine/Menthol Lozenge MM 1 each Q2HR PRN Administration Sore Throat Lactated Ringer's 1,000 mls @ 125 mls/hr 07/14/21 11:00 07/15/21 02:00 Lactated Ringers IV 125 mls/hr DIRECT ZAIDA Administration Ibuprofen 800 mg 07/14/21 15:23 Ibuprofen 800 Mg Tab PO Q8H PRN Pain, Moderate (4-6) Morphine Sulfate 4 mg 07/14/21 15:23 Morphine 4 Mg/1 Ml Inj IV Q4H PRN Pain , Severe (7-10) Ondansetron HCl 4 mg 07/14/21 10:30 Ondansetron 4 Mg/2 Ml Inj IV ONCE PRN Nausea And Vomiting Oxycodone/Acetaminophen 2 tab 07/14/21 15:23 07/15/21 14:40 Oxycodone /Acetaminophen 5-325mg Tab PO 2 tab Q4H PRN Administration Pain, Moderate (4-6)
[2021-07-15 15:58] VITALS: BP 116/62
--- NOTE | 2021-07-15 18:05 | Discharge Summary ---
Providers - Providers Date of Admission: 07/14/21 13:36 Date of discharge: 07/15/21 Attending physician: KIAN PINTO Primary care physician: ELIGIBILITY TECHNICIAN Hospitalization Procedure: other (Loop electrode excision procedure (LEEP)) complications: other (Intra op hemorrhage with transfusion of 2units started in OR and completed in PACU) Hospital course: Scheduled same day surgery LEEP for severe dysplasia with intraop hemorrhage done by Dr. Pinto and pt given 2units PRBC with good response. Pt kept for observation and she remained stable. Hgb 9.4 and vitals signs normal. Pathology pending. Pt to be seen in office in 1week. Condition at discharge: Good Disposition: 01 HOME / SELF CARE / HOMELESS - Discharge Diagnoses (1) S/P LEEP (loop electrosurgical excision procedure) Status: Acute (2) Hemorrhage Status: Acute Plan - Discharge Medications Prescriptions: Ferrous Sulfate [Ferrous Sulfate 324 MG] 324 mg PO BID 30 Days #60 tablet. Ibuprofen [Motrin] 800 mg PO Q8HR PRN 21 Days #40 tablet PRN Reason: Pain, Moderate (4-6) oxyCODONE /ACETAMINOPHEN [Percocet 5/325] 1 tab PO Q4HR PRN 21 Days #30 tab PRN Reason: Pain , Severe (7-10) - Provider Discharge Summary Activity: no sex for 6 weeks, no heavy lifting 4 weeks Diet: routine Additional instructions: [] Smoking cessation referral if applicable(refer to patient education folder for contact #) [] Refer to [facility]'s [facility] Booklet Call your doctor immediately for: * Fever > 100.5 * Heavy vaginal bleeding ( >1 pad per hour) * Severe persistent headache * Shortness of breath * Reddened, hot, painful area to leg or breast * Drainage or odor from incision. * Keep incision clean and dry at all times and follow doctor's instructions regarding bathing/showering - Follow up plan Follow up: PRIMARY CAREMD [Primary Care Provider] - 7 Days KIAN PINTO MD [Staff Physician] - 7 Days Forms: [facility] Discharge Summary, Work/School Release Form
== END 2021-07-15 17:10 | disposition home or self-care (01) ==
LOC: OR 09:21 → OB 13:36
PROVIDERS: ADMIT Obstetrics & Gynecology; ATTEND Obstetrics & Gynecology
DX: N87.9 Dysplasia of cervix uteri, unspecified (principal); Z20.822 Contact with and (suspected) exposure to COVID-19; D50.8 Other iron deficiency anemias; Z98.890 Other specified postprocedural states; Z79.899 Other long term (current) drug therapy
CPT/HCPCS: 36415; 57522; 81025; 85025; 86850; 86900; 86901; 86920; 88307; 96365; 96366; G0378; J0690; J2250; J2405; J2704; J3010; J3490; J7030; J7120; P9016; P9045; U0003; 85007; Q0162; J1200